=== PATIENT | male | born 1975 | race Caucasian/White ===

== ENCOUNTER → 2024-07-09 | Outpatient (CLI) | payer OTHER ==
--- NOTE | 2024-07-09 11:04 | XR ---
EXAMINATION TYPE: XR lumbar spine 2 or 3V DATE OF EXAM: 07/09/2024 CLINICAL HISTORY: pain TECHNIQUE: Three views of the lumbar spine are submitted. COMPARISON: None. FINDINGS: There are 5 lumbar type vertebral bodies identified. The lumbar spine shows satisfactory alignment. Mild anterior wedging of the T11 and T12 vertebral bodies. Remaining vertebral body heights are withi n normal limits. Multilevel disc space narrowing with endplate sclerosis and anterior osteophytosis. The overlying soft tissue appears unremarkable. IMPRESSION: 1. No acute fracture or dislocation is seen in the lumbar spine. 2. Mild anterior wedging of the T11 and T12 vertebral bodies. Correlate with point tenderness. [facility], , 07/09/2024 11:02 AM
== END | disposition home or self-care (01) ==
LOC: RADXRMAIN 10:20
PROVIDERS: ATTEND Family Medicine
DX: M48.54XA Collapsed vertebra, not elsewhere classified, thoracic region, initial encounter for fracture (principal); M54.32 Sciatica, left side
CPT/HCPCS: 72100